=== PATIENT | male | born 1955 | race Caucasian/White ===

== ENCOUNTER 2017-05-20 23:38 | Emergency (ER) | payer MEDICARE, OTHER ==
--- NOTE | 2017-05-21 | ED Physician Documentation ---
PD HPI FOCAL NEURO - Stated complaint Stated Complaint: STROKE LIKE SYMPTOMS - History obtained from History obtained from: Patient, Family - History of Present Illness Timing - onset: Other (1 PM and again tonight) Timing - duration: Minutes Timing - details: Abrupt onset, Now resolved Severity of deficit: Mild Baseline status: positive: A&OX3, ambulatory, indep Similar symptoms before: Has not had sx before Recently seen: Not recently seen - Additional information Additional information: family noted slurred speech at approximately 1 PM today which resolved after few minutes. 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 Patient does not recall having speech difficulty; he also says that if he did have speech difficulty, it was likely a result of radiation treatments he had in the past for a brain tumor (notably, family indicates he has not had slurred speech before despite the radiation history) Review of Systems Constitutional: reports: Reviewed and negative Eyes: reports: Reviewed and negative Cardiac: reports: Reviewed and negative Respiratory: reports: Reviewed and negative GI: reports: Reviewed and negative Neurologic: reports: Difficulty speaking (resolved MEDICAL EQUIPMENT TECHNICIAN). denies: Generalized weakness, Focal weakness, Numbness, Confused, Altered mental status, Headache PD PAST MEDICAL HISTORY - Past Medical History Past Medical History: Yes Cardiovascular: Hypertension, High cholesterol Other Past Medical History: brain tumor, radiation tx. - Present Medications Home Medications: Ambulatory Orders Medication Instructions Recorded Confirmed Donepezil HCl [Donepezil HCl Odt] 10 mg PO DAILY 05/20/17 05/20/17 Lisinopril [Prinivil] 10 mg PO DAILY 05/20/17 05/20/17 Loratadine [Claritin] 10 mg PO DAILY 05/20/17 05/20/17 Simvastatin [Zocor] 40 mg PO DAILY 05/20/17 05/20/17 raNITIdine HCl [Ranitidine HCl] 75 mg PO DAILY 05/20/17 05/20/17 - Allergies Allergies/Adverse Reactions: Allergies Allergy/AdvReac Type Severity Reaction Status Date / Time No Known Drug Allergies Allergy Verified 05/20/17 23:57 - Living Situation Living Situation: reports: With family Living Arrangement: reports: At home - Social History Does the pt smoke?: No PD ED PE NORMAL - Vitals Vital signs reviewed: Yes - General General: Alert and oriented X 3, No acute distress, Well developed/nourished - HEENT HEENT: PERRL, EOMI, Moist mucous membranes - Neck Neck: Supple, no meningeal sign - Cardiac Cardiac: RRR, No murmur - Respiratory Respiratory: No respiratory distress, Clear bilaterally - Abdomen Abdomen: Soft, Non tender - Derm Derm: Normal color, Warm and dry - Extremities Extremities: Normal ROM s pain, No edema - Neuro Neuro: Alert and oriented X 3, bilingual interpreter 2-12 intact, No motor deficit, No sensory deficit, Normal speech Eye Opening: Spontaneous Motor: Obeys Commands Verbal: Oriented GCS Score: 15 - Psych Psych: Normal mood, Normal affect NIHSS - Level of Consciousness Level of consciousness: (0) Alert, Keenly responsive LOC Questions: (0) Answers both Q's correct LOC Commands: (0) Performs both correctly - Gaze Best Gaze: (0) Normal - Visual Visual: (0) No loss - Facial Palsy Facial Palsy: (0) Normal, symmetrical movement - Motor Arms (both separate) Motor Arm (right): (0) No drift Motor Arm (left): (0) No drift - Motor Legs (both separate) Motor Leg (right): (0) No drift Motor Leg (left): (0) No drift - Limb Ataxia Limb Ataxia: (0) Absent - Sensory Sensory: (0) Normal - Best Language Best Language: (0) No aphasia - Dysarthria Dysarthria: (0) Normal - Extinction and Inattention (formally neg Extinction and inattention: (0) No abnormality - Total Score/Results Total Score/Result: 0 Results - Vitals Vitals: Oxygen O2 Source Room air - Labs Labs: Laboratory Tests 05/20/17 05/20/17 05/20/17 23:53 23:53 23:53 WBC 8.1 RBC 4.58 L Hgb 14.2 Hct 41.1 L MCV 89.8 MCH 31.1 H MCHC 34.6 RDW 13.6 Plt Count 273 MPV 8.3 Neut # 4.9 Lymph # 2.2 Nye # 0.9 Eos # 0.1 Baso # 0.1 Absolute Nucleated RBC 0.01 Nucleated RBC % 0.1 Sodium 137 Potassium 4.0 Chloride 101 Carbon Dioxide 27 Anion Gap 9.0 BUN 15 Creatinine 1.0 Estimated GFR (MDRD) 76 L Glucose 128 H Calcium 9.3 Troponin I < 0.04 Urine Color Urine Clarity Urine pH Ur Specific [place] Urine Protein Urine Glucose (UA) Urine Ketones Urine Occult Blood Urine Nitrite Urine Bilirubin Urine Urobilinogen Ur Leukocyte Esterase Urine RBC Urine WBC Ur Squamous Epith Cells Urine Bacteria Urine Casts Urine Mucus Ur Microscopic Review Urine Culture Comments 05/21/17 01:10 WBC RBC Hgb Hct MCV MCH MCHC RDW Plt Count MPV Neut # Lymph # Nye # Eos # Baso # Absolute Nucleated RBC Nucleated RBC % Sodium Potassium Chloride Carbon Dioxide Anion Gap BUN Creatinine Estimated GFR (MDRD) Glucose Calcium Troponin I Urine Color YELLOW Urine Clarity CLEAR Urine pH 6.5 Ur Specific [place] 1.025 Urine Protein TRACE Urine Glucose (UA) NEGATIVE Urine Ketones NEGATIVE Urine Occult Blood LARGE H Urine Nitrite NEGATIVE Urine Bilirubin NEGATIVE Urine Urobilinogen 1 (NORMAL) Ur Leukocyte Esterase NEGATIVE Urine RBC 6-10 H Urine WBC 0-3 Ur Squamous Epith Cells RARE Squamous Urine Bacteria Rare Urine Casts 0-2 Hyaline Casts Urine Mucus Marked Strands Ur Microscopic Review INDICATED Urine Culture Comments NOT INDICATED - Rads (name of study) CT head Radiology: Prelim report reviewed, See rad report PD MEDICAL DECISION MAKING - ED course Complexity details: reviewed results, re-evaluated patient, considered differential, d/w patient, d/w family Departure - Departure Disposition: 01 Home, Self Care Clinical Impression: Slurred speech Condition: Good Instructions: Aphasia Comments: Contact your primary care provider's office in the morning to arrange for next available appointment Discharge Date/Time: 05/21/17 03:28
[2017-05-21 00:13] LABS: BASOPHILS # (AUTO) 0.1 10^3/uL (0.0-0.1); BASOPHILS % (AUTO) 0.7 %; EOSINOPHILS # (AUTO) 0.1 10^3/uL (0.0-0.7); EOSINOPHILS % (AUTO) 0.8 %; HGB - HEMOGLOBIN 14.2 g/dL (14.0-18.0); LYMPHOCYTES # (AUTO) 2.2 10^3/uL (1.5-3.5); LYMPHOCYTES % (AUTO) 27.5 %; MEAN CORPUSCULAR HEMOGLOBIN 31.1 pg (27.0-31.0); MEAN CORPUSCULAR HGB CONC 34.6 g/dL (32.0-36.0); MEAN CORPUSCULAR VOLUME 89.8 fL (80.0-94.0); MEAN PLATELET VOLUME 8.3 fL (7.4-11.4); MONOCYTES # (AUTO) 0.9 10^3/uL (0.0-1.0); MONOCYTES % (AUTO) 10.8 %; NEUTROPHILS # (AUTO) 4.9 10^3/uL (1.5-6.6); NEUTROPHILS % (AUTO) 60.2 %; PLT - PLATELET COUNT 273 10^3/uL (130-450); RED BLOOD COUNT 4.58 10^6/uL (4.70-6.10); RED CELL DISTRIBUTION WIDTH 13.6 % (12.0-15.0); WHITE BLOOD COUNT 8.1 x10^3/uL (4.8-10.8)
[2017-05-21 00:15] LABS: CALCIUM 9.3 mg/dL (8.5-10.3)
[2017-05-21] MEDS ORDERED: ONDANSETRON 4 MG/2 ML VIAL ONE (00:31)
[2017-05-21] MEDS ORDERED: ONDANSETRON 4 MG/2 ML VIAL IVP STA (00:44)
--- NOTE | 2017-05-21 00:58 | CT Report ---
EXAM: CT HEAD EXAM DATE: 05/21/2017 12:37 AM. CLINICAL HISTORY: Altered mental status. Slurred speech. COMPARISON: CT head without contrast 05/05/2009. TECHNIQUE: Multiaxial CT images were obtained from the foramen magnum to the vertex. Reformats: Coron al. IV contrast: None. In accordance with CT protocol optimization, one or more of the following dose reduction techniques w ere utilized for this exam: automated exposure control, adjustment of mA and/or KV based on patient s ize, or use of iterative reconstructive technique. FINDINGS: A remote right parieto-occipital craniotomy is again demonstrated. A large surgical resection cavity in the right parietal and occipital lobes appears to extend to the right atrial trigone. There is dys trophic calcification along the margins of the resection cavity inferiorly. These findings appear unc hanged. There is no intracranial hemorrhage. There is no obvious mass lesion or mass effect. There is no CT e vidence of an acute infarct. There is mild to moderate chronic microvascular change in the [place] er bilaterally. This appears stable. Ventricular size is stable. No evidence of hydrocephalus. IMPRESSION: 1. No acute intracranial abnormality. No significant change compared to 05/05/2009. 2. Stable postsurgical change from remote right parieto-occipital craniotomy. A surgical resection ca vity in the right parietal and occipital lobes with areas of dystrophic calcification appears unchang ed. 3. Stable ventricular size. No hydrocephalus. [facility] Referring Provider Line: [phone] SITE ID: [id number]
[2017-05-21 01:20] LABS: BILIRUBIN,URINE NEGATIVE (NEGATIVE); GLUCOSE, URINE (UA) NEGATIVE (NEGATIVE); KETONES,URINE (UA) NEGATIVE (NEGATIVE); LEUKOCYTE ESTERASE, URINE NEGATIVE (NEGATIVE); NITRITE,URINE NEGATIVE (NEGATIVE); OCCULT BLOOD,URINE LARGE (NEGATIVE); PH,URINE 6.5 PH (5.0-7.5); PROTEIN,URINE TRACE mg/dL (NEGATIVE); UROBILINOGEN,URINE 1 (NORMAL) E.U./dL (NORMAL)
[2017-05-21 01:21] LABS: CLARITY,URINE CLEAR (CLEAR)
[2017-05-21 01:28] LABS: BACTERIA,URINE Rare /HPF (None Seen); CASTS, URINE 0-2 Hyaline Casts /LPF; MUCUS,URINE Marked Strands; SQUAMOUS EPITHELIAL CELL,UR RARE Squamous (<= Few)
[2017-05-21] MEDS ORDERED: LISINOPRIL 5 MG TABLET PO STA (03:10)
[2017-05-21 03:26] VITALS: BP 156/98
== END 2017-05-21 03:28 | disposition home or self-care (01) ==
LOC: ED 23:38
DX: R47.81 Slurred speech (principal); I10 Essential (primary) hypertension; E78.00 Pure hypercholesterolemia, unspecified; R00.0 Tachycardia, unspecified; Z92.3 Personal history of irradiation
CPT/HCPCS: 36415; 70450; 80048; 81001; 84484; 85025; 96374; 99283; 99284; A9270; 81003; 87086; 93005

== ENCOUNTER 2017-10-08 12:38 | Outpatient (CLI) | payer OTHER | END 2017-10-08 12:39 | disposition short-term general hospital (02) | LOC: EMS 12:38 | PROVIDERS: ATTEND Surgery | DX: R53.1 Weakness (principal); R20.0 Anesthesia of skin; R47.81 Slurred speech ==

== ENCOUNTER 2019-02-18 12:17 | Outpatient (CLI) | payer OTHER | END 2019-02-18 12:18 | disposition critical access hospital (66) | LOC: EMS 12:17 | PROVIDERS: ATTEND Surgery | DX: R46.4 Slowness and poor responsiveness (principal); R11.2 Nausea with vomiting, unspecified; R19.7 Diarrhea, unspecified | CPT/HCPCS: A0425; A0427 ==

== ENCOUNTER 2019-02-18 12:36 | Inpatient (IN) | payer OTHER ==
[2019-02-18] MEDS ORDERED: SODIUM CHLORIDE 0.9% 1,000 ML IV ONE ×4 (13:11→14:58)
--- NOTE | 2019-02-18 13:11 | ED Physician Documentation ---
PD HPI ALTERED MENTAL STATUS - Stated complaint Stated Complaint: DECREASED LOC - Chief complaint Chief Complaint: Neuro - History obtained from History obtained from: Family, EMS - History of Present Illness Timing - onset: Today Timing - duration: Days (1) Timing - details: Gradual onset Quality / character: Confused, Disoriented Associated symptoms: Fever (101), Cough, NVD. No: Headache Contributing factors: Known dementia. No: Anticoagulated Basline status: Other (mostly bedbound at baseline, normally "pretty with it") Recently seen: Not recently seen Review of Systems Unable to obtain: AMS Constitutional: reports: Fever. denies: Chills GI: denies: Vomiting, Diarrhea Skin: denies: Rash Musculoskeletal: denies: Neck pain, Back pain Neurologic: denies: Headache PD PAST MEDICAL HISTORY - Past Medical History Cardiovascular: Hypertension, High cholesterol Neuro: Dementia, CVA GI: GERD Musculoskeletal: Other Other Past Medical History: Brain tumor. L hemiparesis - Past Surgical History Past Surgical History: Yes - Present Medications Home Medications: Ambulatory Orders Medication Instructions Recorded Confirmed Donepezil HCl 10 mg PO DAILY 02/18/19 02/18/19 Lisinopril [Zestril] 40 mg PO 02/18/19 Metoprolol Tartrate 25 mg PO BID 02/18/19 02/18/19 - Allergies Allergies/Adverse Reactions: Allergies Allergy/AdvReac Type Severity Reaction Status Date / Time No Known Drug Allergies Allergy Verified 02/18/19 12:54 - Social History Does the pt smoke?: No Smoking Status: Never smoker Does the pt drink ETOH?: No Does the pt have substance abuse?: No - Immunizations Immunizations are current?: Yes PD ED PE NORMAL - Vitals Vital signs reviewed: Yes - General General: No acute distress, Other (alert, slow to respond, confused) - HEENT HEENT: PERRL, Other (dry lips and mouth) - Neck Neck: Supple, no meningeal sign - Cardiac Cardiac: Strong equal pulses, Other (tachycardic) - Respiratory Respiratory: No respiratory distress, Other (rhonchi B) - Abdomen Abdomen: Soft, Non tender, Non distended - Derm Derm: Warm and dry, No rash - Extremities Extremities: No calf tenderness / cord - Neuro Neuro: Other (alert,) Eye Opening: Spontaneous Motor: Obeys Commands Verbal: Confused GCS Score: 14 - Psych Psych: Normal mood, Normal affect Results - Vitals Vitals: Vital Signs - 24 hr 02/18/19 02/18/19 02/18/19 12:37 13:30 15:30 Temperature 36.7 C Heart Rate 118 H 114 H 104 H Respiratory 16 20 17 Rate Blood Pressure 201/107 H 169/95 H 194/105 H O2 Saturation 94 94 94 02/18/19 16:46 Temperature Heart Rate 108 H Respiratory 26 H Rate Blood Pressure 197/102 H O2 Saturation 96 Oxygen O2 Source Room air - EKG (time done) 1250 Rate: Rate (enter#) (115) Rhythm: Sinus tachycardia [place]: LAD Intervals: Normal [place] QRS: Normal Ischemia: Normal ST segments - Labs Labs: Laboratory Tests 02/18/19 02/18/19 02/18/19 13:13 13:13 14:33 WBC 12.4 H RBC 4.99 Hgb 15.1 Hct 45.4 MCV 91.0 MCH 30.3 MCHC 33.3 RDW 13.1 Plt Count 315 MPV 10.2 Neut # (Auto) 10.2 H Lymph # (Auto) 1.5 [place] # (Auto) 0.6 Eos # (Auto) 0.0 Baso # (Auto) 0.1 Absolute Nucleated RBC 0.00 Nucleated RBC % 0.0 Sodium 139 Potassium 4.4 Chloride 101 Carbon Dioxide 22 Anion Gap 16.0 H BUN 15 Creatinine 0.9 Estimated GFR (MDRD) 85 L Glucose 188 H Lactic Acid 3.6 H* Calcium 9.7 Total Bilirubin 0.5 AST 67 H ALT 89 H Alkaline Phosphatase 53 Total Protein 8.5 H Albumin 4.7 Globulin 3.8 Albumin/Globulin Ratio 1.2 Lipase 38 Urine Color Urine Clarity Urine pH Ur Specific [place] Urine Protein Urine Glucose (UA) Urine Ketones Urine Occult Blood Urine Nitrite Urine Bilirubin Urine Urobilinogen Ur Leukocyte Esterase Urine RBC Urine WBC Ur Squamous Epith Cells Urine Bacteria Urine Mucus Ur Microscopic Review Urine Culture Comments Influenza A (Rapid) Influenza B (Rapid) 02/18/19 02/18/19 14:48 14:48 WBC RBC Hgb Hct MCV MCH MCHC RDW Plt Count MPV Neut # (Auto) Lymph # (Auto) [place] # (Auto) Eos # (Auto) Baso # (Auto) Absolute Nucleated RBC Nucleated RBC % Sodium Potassium Chloride Carbon Dioxide Anion Gap BUN Creatinine Estimated GFR (MDRD) Glucose Lactic Acid Calcium Total Bilirubin AST ALT Alkaline Phosphatase Total Protein Albumin Globulin Albumin/Globulin Ratio Lipase Urine Color YELLOW Urine Clarity CLEAR Urine pH 6.5 Ur Specific [place] 1.025 Urine Protein 30 H Urine Glucose (UA) 100 H Urine Ketones 15 H Urine Occult Blood TRACE-INTA Urine Nitrite NEGATIVE Urine Bilirubin NEGATIVE Urine Urobilinogen 0.2 (NORMAL) Ur Leukocyte Esterase NEGATIVE Urine RBC 0-5 Urine WBC 0-3 Ur Squamous Epith Cells NONE SEEN Urine Bacteria None Seen Urine Mucus Moderate Strands Ur Microscopic Review INDICATED Urine Culture Comments NOT INDICATED Influenza A (Rapid) Negative Influenza B (Rapid) Negative - Rads (name of study) CT abd/pelvis Radiology: Prelim report reviewed, EMP read contemporaneously, See rad report (1. Mild sigmoid colon diverticulosis without evidence of acute diverticulitis. 2. Hepatic steatosis. 3. No specific findings to account for fever or vomiting. ) cxr Radiology: Prelim report reviewed, EMP read contemporaneously, See rad report (Shallow lung volumes without focal consolidations identified. ) PD MEDICAL DECISION MAKING - ED course Complexity details: reviewed results, re-evaluated patient, considered differential, d/w patient, d/w family, d/w senior internet sales consultant ED course: Patient with altered mental status and fever. Also vomiting. Lactate is elevated. Unclear etiology. He has been coughing as well. Given IV fluids and IV antibiotics. Blood cultures were drawn. No acute findings on chest x-ray or CT of the abdomen pelvis. He states that he has no headache. Family denies any trauma. Atraumatic exam of the head. We will admit for further care. Discussed the case with Dr. Hunter, hospitalist who accepts This document was made in part using voice recognition software. While efforts are made to proofread this document, sound alike and grammatical errors may occur. Departure - Departure Disposition: 66 [facility] DC/Xfer Clinical Impression: Dehydration Fever Qualifiers: Fever type: unspecified Qualified Code(s): R50.9 - Fever, unspecified Altered mental status Qualifiers: Altered mental status type: disorientation Qualified Code(s): R41.0 - Disorientation, unspecified Vomiting Qualifiers: Vomiting type: unspecified Vomiting Intractability: intractable Nausea presence: with nausea Qualified Code(s): R11.2 - Nausea with vomiting, unspecified Condition: Stable Discharge Date/Time: 02/18/19 17:40
[2019-02-18 13:16] LABS: BASOPHILS # (AUTO) 0.1 10^3/uL (0.0-0.1); BASOPHILS % (AUTO) 0.4 %; HGB - HEMOGLOBIN 15.1 g/dL (14.0-18.0); LYMPHOCYTES # (AUTO) 1.5 10^3/uL (1.5-3.5); LYMPHOCYTES % (AUTO) 12.1 %; MEAN CORPUSCULAR HEMOGLOBIN 30.3 pg (27.0-31.0); MEAN CORPUSCULAR HGB CONC 33.3 g/dL (32.0-36.0); MEAN PLATELET VOLUME 10.2 fL (7.4-11.4); MONOCYTES # (AUTO) 0.6 10^3/uL (0.0-1.0); MONOCYTES % (AUTO) 5.1 %; NEUTROPHILS # (AUTO) 10.2 10^3/uL (1.5-6.6); NEUTROPHILS % (AUTO) 81.8 %; PLT - PLATELET COUNT 315 10^3/uL (130-450); RED BLOOD COUNT 4.99 10^6/uL (4.70-6.10); RED CELL DISTRIBUTION WIDTH 13.1 % (12.0-15.0); WHITE BLOOD COUNT 12.4 x10^3/uL (4.8-10.8)
[2019-02-18 13:31] LABS: ALBUMIN 4.7 g/dL (3.2-5.5); ALBUMIN/GLOBULIN RATIO 1.2 (1.0-2.2); BILIRUBIN,TOTAL 0.5 mg/dL (0.2-1.0); CALCIUM 9.7 mg/dL (8.5-10.3); CREATININE 0.9 mg/dL (0.6-1.2); TOTAL PROTEIN 8.5 g/dL (6.7-8.2)
[2019-02-18] MEDS ORDERED: ONDANSETRON 4 MG/2 ML VIAL IVP STA (14:19)
--- NOTE | 2019-02-18 14:30 | XRAY Report ---
Reason: fever, cough Procedure Date: 02/18/2019 Accession Number: [id number] / [id number] Procedure: XR - Chest 1 View X-Ray CPT Code: 37659 Final Report FULL RESULT: EXAM: CHEST RADIOGRAPHY EXAM DATE: 02/18/2019 02:21 PM. CLINICAL HISTORY: Fever, cough. COMPARISON: XR CHEST 1 VIEWS 05/05/2009 4:52 PM. TECHNIQUE: 1 view. FINDINGS: Lungs/Pleura: Shallow lung volumes without focal consolidations. No pulmonary edema detected. Mediastinum: Within exam limitations, the cardiomediastinal contour is normal. Other: None. IMPRESSION: Shallow lung volumes without focal consolidations identified. [facility]
[2019-02-18 14:55] LABS: BILIRUBIN,URINE NEGATIVE (NEGATIVE); GLUCOSE, URINE (UA) 100 mg/dL (NEGATIVE); KETONES,URINE (UA) 15 mg/dL (NEGATIVE); LEUKOCYTE ESTERASE, URINE NEGATIVE (NEGATIVE); NITRITE,URINE NEGATIVE (NEGATIVE); OCCULT BLOOD,URINE TRACE-INTA (NEGATIVE); PH,URINE 6.5 PH (5.0-7.5); PROTEIN,URINE 30 mg/dL (NEGATIVE); UROBILINOGEN,URINE 0.2 (NORMAL) E.U./dL (NORMAL)
[2019-02-18 14:58] LABS: CLARITY,URINE CLEAR (CLEAR)
[2019-02-18 15:15] LABS: BACTERIA,URINE None Seen /HPF (None Seen); MUCUS,URINE Moderate Strands; RBC,URINE 0-5 /HPF (0-5); SQUAMOUS EPITHELIAL CELL,UR NONE SEEN (<= Few)
[2019-02-18] MEDS ORDERED: IOVERSOL 320 100 ML VIAL IVP ONE ×2 (15:39→15:59)
[2019-02-18] MEDS ORDERED: PIPERACILLIN/TAZOBACTAM 3.375 GM in SODIUM CHLORIDE 0.9% MINIBAG 100 ML IV STA (16:17)
[2019-02-18] MEDS ORDERED: VANCOMYCIN INJ 2 GM in SODIUM CHLORIDE 0.9% 500 ML IV STA (16:17)
--- NOTE | 2019-02-18 16:17 | CT Report ---
Reason: vomiting, fever Procedure Date: 02/18/2019 Accession Number: [id number] / [id number] Procedure: CT - Abdomen/Pelvis W CPT Code: Final Report FULL RESULT: EXAM: CT ABDOMEN AND PELVIS EXAM DATE: 02/18/2019 03:56 PM. CLINICAL HISTORY: Vomiting, fever. COMPARISONS: None. TECHNIQUE: Routine helical CT imaging was performed through the abdomen and pelvis. IV contrast: OPTI 320 100ML. Enteric contrast: No. Reconstructions: Coronal and sagittal. In accordance with CT protocol optimization, one or more of the following dose reduction techniques were utilized for this exam: automated exposure control, adjustment of mA and/or KV based on patient size, or use of iterative reconstructive technique. FINDINGS: Lung Bases: Mild reticular dependent bibasilar atelectasis. Liver: Normal size and contour. Diffuse steatosis with areas of focal fatty sparing at the gallbladder fossa and peripherally in the lateral left lobe and superiorly at the junction of right and left lobes. Gallbladder/Bile Ducts: Unremarkable. Spleen: Normal. Pancreas: Normal. Adrenal Glands: Normal. Kidneys: Normal. No masses or hydronephrosis. Peritoneal Cavity/Bowel: Unopacified stomach and small bowel are nondistended. There is a 1 cm diverticulum medially directed from the second portion of the duodenum. The appendix is normal. There is minimal formed stool the colon. There is mild sigmoid colon diverticulosis. There is no focal pericolonic fat stranding. There is no lymphadenopathy, ascites, or pneumoperitoneum. Pelvic Organs: Bladder, prostate gland, and seminal vesicles are unremarkable. Vasculature: No aneurysms or other significant abnormality. Bones: No significant abnormality. Other: Body wall is unremarkable. IMPRESSION: 1. Mild sigmoid colon diverticulosis without evidence of acute diverticulitis. 2. Hepatic steatosis. 3. No specific findings to account for fever or vomiting. [facility]
[2019-02-18] MEDS ORDERED: ONDANSETRON 4 MG/2 ML VIAL IVP PRN (16:57)
[2019-02-18] MEDS ORDERED: ACETAMINOPHEN 325 MG TABLET PO PRN (16:57)
[2019-02-18] MEDS ORDERED: PROCHLORPERAZINE 10 MG/2 ML VIAL IVP PRN (16:57)
[2019-02-18] MEDS ORDERED: SODIUM CHLORIDE FLUSH 0.9% 10 ML SYRINGE IVP PRN (16:57)
--- NOTE | 2019-02-18 17:09 | HISTORY & PHYSICAL EXAMINATION ---
Chief Complaint - Chief Complaint Chief Complaint: N/V/D History of Present Illness - History of Present Illness HPI Comment/Other: Mr. Bravo is a 63-yrs-old male with a PMH significant for Hypertension, High cholesterol, Dementia, CVA with left hemiparesis, GERD, Brain tumor who was brought in by EMS complain for decreased LOC per family. Pt can not provide any medical information because of his medical hx. Pt had hx of brain tumor with tumor removal at 1976 and stroke at about 2 years ago with Left hemiparesis and with advanced dementia. Per pt's , pt has had diarrhea, dark urine, and has been less verbally responsive than his usual, today pt had at lease a dozen times of nausea and vomiting. Pt's report pt complained of abdominal pain but pt denies headache, chest pain, shortness of breath. pt had one time diarrhea at ER. Upon examination, pt's right side strength is 5/5 without focal deficits, but pt's left side as his hx with left hemiparesis. surprised, in pt's home meds, pt has no meds for his stroke. Pt's report he had fever at home. Pt is bedridden as his baseline, and he is living with family. pt's CXR and CT of abdomen reveals unremarkable. Route lab test reveal lactic acid at 3.6, and with elevated WBC at 12.4. pt is admitted for above medical reason. History - Past Medical History Cardiovascular: reports: Hypertension, High cholesterol Neuro: reports: Dementia, CVA GI: reports: GERD Musculoskeletal: reports: Other Other Past Medical History: Brain tumor. L hemiparesis - Family & Social History Family History: Mother: , CAD, Father: , CVA/TIA Family History Comment/Other: pt's pt's father from brain stroke, his mother from CAD and [place]. Social History Notes: pt is reported no hx of cigarette smoking, alcohol and drug issue. pt is living with family at [place]. pt is bedbound and his and his family support for pt. Meds/Allgy - Home Medications Home Medications: Ambulatory Orders Medication Instructions Recorded Confirmed Donepezil HCl 10 mg PO DAILY 02/18/19 02/18/19 Lisinopril [Zestril] 40 mg PO 02/18/19 Metoprolol Tartrate 25 mg PO BID 02/18/19 02/18/19 - Allergies Allergies/Adverse Reactions: Allergies Allergy/AdvReac Type Severity Reaction Status Date / Time No Known Drug Allergies Allergy Verified 02/18/19 12:54 Review of Systems - Constitutional Constitutional: reports: Fever. denies: Weakness, Poor appetite, Diaphoresis, Night sweats - Eyes Eyes: denies: Pain, Irritation, Field loss, Vision loss - Ears, Nose & Throat Ears, Nose & Throat: denies: Ear pain, Hearing loss, Vertigo, Nasal pain, Nosebleeds, Nasal congestion, Postnasal drainage - Cardiovascular Cariovascular: denies: Irregular heart rate, Palpitations, Chest pain, Edema, L ightheadedness, Syncope, Exertional dyspnea, Decr. exercise tolerance - Respiratory Respiratory: reports: Cough. denies: Sputum production, Wheezing, Snoring, H emoptysis, Orthopnea, SOB at rest, SOB with exertion - Gastrointestinal Gastrointestinal: reports: Abdominal pain, Diarrhea, Nausea, Vomiting. denies: Abdominal distention, Constipation, Change in bowel habits, Rectal bleeding, Black stools, Bloody stools, Coffee grounds emesis, Reflux/heartburn - Genitourinary Genitourinary: denies: Dysuria, Frequency, Urgency, Hematuria, Incontinence, Flank pain, Nocturia, Urethral discharge - Musculoskeletal Musculoskeletal: denies: Muscle pain, Back pain, Muscle aches, Stiffness, Limited range of motion, Muscle weakness, Gout, Joint pain - Integumentary Integumentary: denies: Rash, Lesions, Dryness, Lumps, Acne, Nail changes - Neurological Neurological: reports: Pre-existing deficit. denies: General weakness, Focal weakness, Headache, Dizziness, Numbness, Memory problems, Abnormal gait, Seizures, Incoordination, Slurred speech - Psychiatric Psychiatric: denies: Depression, Anxiety, Suicidal, Delusions, Hallucinations, Homicidal - Endocrine Endocrine: denies: Polyphagia - Hematologic/Lymphatic Hematologic/Lymphatic: denies: Anemia, Bruising, Petechiae, Blood clots, Lymphadenopathy, Bleeding tendencies - Other Findings Other Findings: all above ROS is provided by pt's Exam - Vital Signs Vital Signs: Vital Signs x48h Temp Pulse Resp BP Pulse Ox 02/18/19 16:46 108 H 26 H 197/102 H 96 02/18/19 12:37 36.7 C 118 H 16 201/107 H 94 - Physical Exam General Appearance: positive: No acute distress, Alert. negative: Lethargic Eyes Bilateral: positive: Normal inspection, PERRL, No lid inflammation ENT: positive: ENT inspection nml, Pharynx nml, No signs of dehydration. negative: Purulent nasal drainage Neck: positive: Nml inspection, Thyroid nml. negative: Thyromegaly, Lymphadenopathy (R), Lymphadenopathy (L), Stiff neck, Tracheal deviation Respiratory: positive: Chest non-tender, No respiratory distress, Breath sounds nml. negative: Wheezes, Rales, Rhonchi Cardiovascular: positive: Regular rate & rhythm, No murmur, No gallop, Tachycardia. negative: Irregularly irregular, Extrasystoles, Bradycardia, JVD present, Systolic murmur, Diastolic murmur Peripheral Pulses: positive: 2+ Abdomen: positive: Non-tender, No organomegaly, Nml bowel sounds, No distention. negative: Tenderness, Guarding, Rebound Back: positive: Nml inspection. negative: CVA tenderness (R), CVA tenderness (L) Skin: positive: Color nml, No rash, Warm, Dry. negative: Cyanosis, Diaphoresis, Pallor Extremities: positive: Non-tender, Nml appearance, Other (left hemiparesis). negative: Calf tenderness, Tracee's sign/cords Neurologic/Psychiatric: negative: Weakness, Sensory loss, Facial droop Sepsis Event Note (H) - Evaluation Current Stage of Sepsis: Sepsis Possible source of Sepsis: positive: Unknown - Sepsis Criteria Sepsis Criteria: Recorded Temperature greater than 38.3C or Less than 36C, Recorded Heart Rate greater than 90 bpm, Recorded Respiratory Rate greater than 20, WBC count greater than 10% bands, WBC count greater than 12,000 or less than 4000, Metabolic: lactate > 2 mmol/L Conclusion/Plan - Problem List (1) Altered mental status Conclusion/Plan: pt report pt had altered mental status. pt has hx of advanced dementia, brain tumor and stroke. CT of head is pending. on examination, pt is alert but does not verbally response my questions. but pt does not present acute focal neurological deficit. CT of head is pending, will followup neur check, continue nurse support and orientation to pt. Qualifiers: Altered mental status type: disorientation Qualified Code(s): R41.0 - Disorientation, unspecified (2) Sepsis Conclusion/Plan: pt report he had fever at home, tachycardia, elevated WBC, and elevated lactic acid 3.9. but CXR, and CT of abdomen is unremarkable, UA does not indicate infection. CT of head is pending. pt does not present typical meningitis symptoms, denies neck stiffness or headache. blood culture treat with Zosyn and Vancomycin IVF of NS lab and vital closely monitor pt (3) Intractable nausea and vomiting Conclusion/Plan: CT of abdomen reveal unremarkable. it is possible pt has virus gastritis. plan: IVF of NS, start with bowel rest with initial clear diet anti-emesis PRN, lab and vital monitor (4) HTN (hypertension) Conclusion/Plan: stable, resume home Metoprolol and Lisinopril. vital monitor (5) History of CVA (cerebrovascular accident) Conclusion/Plan: pt has no home meds for his hx of CVA. I tried to reach his PCP Dr. Jacqueline Patiño at [phone] but nobody picked up the phone. I do not know the reason why pt has no home meds for his stroke. advise pt's let pt closely f ollowup his PCP. (6) Advanced dementia Conclusion/Plan: pt has hx of advanced dementia, will resume Donepezil. (7) History of brain tumor Conclusion/Plan: stable, advise pt followup his PCP and oncologist. (8) Do not intubate, cardiopulmonary resuscitation (CPR)-only code status Conclusion/Plan: pt's request DNR/DNI for pt - Lab Results Fish Bones: 02/19/19 05:00 02/19/19 05:00 Core Measures - Anticipated LOS I expect patient to be DC'd or transferred within 96 hours.: Yes - DVT/VTE - Prophylaxis VTE/DVT Device ordered at admit?: Yes VTE/DVT Prophylaxis med ordered at admit?: Yes
[2019-02-18] MEDS ORDERED: hydrALAZINE INJ 20 MG/ML VIAL IVP PRN (17:47)
[2019-02-18] MEDS ORDERED: VANCOMYCIN PER PHARMACY 1 GM in SODIUM CHLORIDE 0.9% 250 ML IV SCH (18:00)
[2019-02-18] MEDS ORDERED: METOPROLOL TARTRATE 25 MG TABLET PO SCH (18:00)
[2019-02-18] MEDS: SODIUM CHLORIDE 0.9% 1,000 ML IV SCH (18:39)
[2019-02-18] MEDS: SODIUM CHLORIDE FLUSH 0.9% 10 ML SYRINGE IVP SCH (18:40)
[2019-02-18] MEDS: METOPROLOL TARTRATE 25 MG TABLET PO SCH ×2 (18:40→21:38)
--- NOTE | 2019-02-18 18:54 | PHARMACY PROGRESS NOTE ---
- Therapy Status Vancomycin regimen day #: 1 (Loading dose 2 g IV x1 given; Maintenance dose: 1.5 g IV q12 (per protocol)) Therapy status: Awaiting steady state Basis for treatment: Empirical Treatment indication: Sepsis Trough goal: 15-20 Concurrent antibiotics: zosyn - KENNY Risk Acute Kidney Injury risk factors: Piperacillin/Tozobactam, IV contrast within 72 hrs, Goal trough >15, Chronic baseline hypertension, Sepsis - Monitoring and Recommendation Clinical response to treatment: I&O Previous 24 hours 02/16/19 02/17/19 02/18/19 23:59 23:59 23:59 Intake Total 100 Balance 100 Lab Results 02/18/19 13:13 BUN 15 Creatinine 0.9 Estimated GFR (MDRD) 85 L Monitoring plan: Daily serum creatinine Next trough due prior to maintenance dose #: 3 (Suspecting this trough may be at pre-steady state as steady state generally reached ~ 5th dose) Next trough due (date/time): 02/20 at 0430 Areas for additional monitoring: IV to PO when appropriate, Therapy de- escalation based on culture results, Acute Kidney Injury Pharmacy recommendation: Continue current regime
[2019-02-18] MEDS: PIPERACILLIN/TAZOBACTAM 3.375 GM in SODIUM CHLORIDE 0.9% MINIBAG 100 ML IV SCH (21:46)
[2019-02-18] MEDS: FAMOTIDINE 20 MG TABLET PO SCH (21:47)
--- NOTE | 2019-02-18 22:51 | CT Report ---
Reason: AMS Procedure Date: 02/18/2019 Accession Number: [id number] / [id number] Procedure: CT - HEAD WO CPT Code: Final Report FULL RESULT: EXAM: CT HEAD EXAM DATE: 02/18/2019 10:28 PM. CLINICAL HISTORY: AMS. COMPARISON: HEAD W/O 05/21/2017 12:31 AM. TECHNIQUE: Multiaxial CT images were obtained from the foramen magnum to the vertex. Reformats: Sagittal and coronal. IV contrast: None. In accordance with CT protocol optimization, one or more of the following dose reduction techniques were utilized for this exam: automated exposure control, adjustment of mA and/or KV based on patient size, or use of iterative reconstructive technique. FINDINGS: Parenchyma: Stable encephalomalacia in the right occipital lobe. Stable atrophy and chronic ischemic changes. No intraparenchymal hemorrhage, mass-effect, or midline shift. Extraaxial Spaces: Normal for age. No subdural or epidural collections identified. Ventricles: Stable ventriculomegaly. Sinuses and Orbits: Imaged paranasal sinuses, orbits, and mastoids show no significant abnormality. Bones: Stable postoperative changes of right craniotomy. Other: None. IMPRESSION: Stable encephalomalacia in the right occipital lobe, with atrophy and ventriculomegaly. No evidence of acute hemorrhage or mass-effect. RADIA The call report notification system was initiated by Dr. Henri Lindquist at 10:41 PM on 02/18/2019. The above call report findings were discussed with Dr Moore by Dr. Henri Lindquist at 10:51 PM on 02/18/2019.
[2019-02-19] MEDS: SODIUM CHLORIDE FLUSH 0.9% 10 ML SYRINGE IVP SCH ×3 (01:21→17:35)
[2019-02-19] MEDS: PIPERACILLIN/TAZOBACTAM 3.375 GM in SODIUM CHLORIDE 0.9% MINIBAG 100 ML IV SCH ×4 (04:25→21:38)
[2019-02-19] MEDS ORDERED: VANCOMYCIN INJ 1.75 GM in SODIUM CHLORIDE 0.9% 500 ML IV SCH (05:00)
[2019-02-19] MEDS ORDERED: VANCOMYCIN INJ 1.5 GM in SODIUM CHLORIDE 0.9% 500 ML IV SCH (05:00)
[2019-02-19] MEDS: VANCOMYCIN INJ 1.5 GM in SODIUM CHLORIDE 0.9% 500 ML IV SCH ×2 (05:29→18:09)
[2019-02-19 05:38] LABS: BASOPHILS % (AUTO) 0.5 %; EOSINOPHILS # (AUTO) 0.1 10^3/uL (0.0-0.7); EOSINOPHILS % (AUTO) 0.7 %; HGB - HEMOGLOBIN 12.8 g/dL (14.0-18.0); LYMPHOCYTES # (AUTO) 2.6 10^3/uL (1.5-3.5); LYMPHOCYTES % (AUTO) 29.2 %; MEAN CORPUSCULAR HEMOGLOBIN 30.5 pg (27.0-31.0); MEAN CORPUSCULAR HGB CONC 33.3 g/dL (32.0-36.0); MEAN CORPUSCULAR VOLUME 91.4 fL (80.0-94.0); MEAN PLATELET VOLUME 10.4 fL (7.4-11.4); MONOCYTES # (AUTO) 0.7 10^3/uL (0.0-1.0); MONOCYTES % (AUTO) 8.3 %; NEUTROPHILS # (AUTO) 5.3 10^3/uL (1.5-6.6); NEUTROPHILS % (AUTO) 60.8 %; PLT - PLATELET COUNT 276 10^3/uL (130-450); RED CELL DISTRIBUTION WIDTH 13.3 % (12.0-15.0); WHITE BLOOD COUNT 8.8 x10^3/uL (4.8-10.8)
[2019-02-19 05:46] LABS: ALBUMIN 3.8 g/dL (3.2-5.5); ALBUMIN/GLOBULIN RATIO 1.3 (1.0-2.2); BILIRUBIN,TOTAL 0.4 mg/dL (0.2-1.0); CALCIUM 8.9 mg/dL (8.5-10.3); CREATININE 0.9 mg/dL (0.6-1.2); MAGNESIUM 1.8 mg/dL (1.7-2.8); TOTAL PROTEIN 6.8 g/dL (6.7-8.2)
[2019-02-19] MEDS: FAMOTIDINE 20 MG TABLET PO SCH ×2 (08:47→21:31)
[2019-02-19] MEDS: METOPROLOL TARTRATE 25 MG TABLET PO SCH ×2 (08:47→21:31)
[2019-02-19] MEDS: DONEPEZIL 5 MG TABLET PO SCH (08:47)
[2019-02-19] MEDS: SACCHAROMYCES BOULARDII 250 MG CAPSULE PO SCH ×2 (08:48→17:35)
[2019-02-19] MEDS ORDERED: ENOXAPARIN 40 MG/0.4 ML SYRINGE SUBQ SCH (09:00)
[2019-02-19] MEDS: SODIUM CHLORIDE 0.9% 1,000 ML IV SCH (09:14)
--- NOTE | 2019-02-19 12:16 | PROVIDER PROGRESS NOTE ---
Assessment/Plan - Problem List (1) Altered mental status Qualifiers: Altered mental status type: disorientation Qualified Code(s): R41.0 - Disorientation, unspecified Assessment/Plan: 02/19 great improved. pt talked with me and asked advance his diet. he denies any more N/V or diarrhea. CT of head is unremarkable for acute findings. neur check, continue nurse support and orientation to pt. pt report pt had altered mental status. pt has hx of advanced dementia, brain tumor and stroke. CT of head is pending. on examination, pt is alert but does not verbally response my questions. but pt does not present acute focal neurological deficit. CT of head is pending, will followup neur check, continue nurse support and orientation to pt. (2) Sepsis Conclusion/Plan: 02/19 improved. WBC is normal now. pt has no fever, chill, no tachycardia, and lactic acid is normal now blood culture is pending continue antibiotics, lab and vital monitor pt report he had fever at home, tachycardia, elevated WBC, and elevated lactic acid 3.9. but CXR, and CT of abdomen is unremarkable, UA does not indicate infection. CT of head is pending. pt does not present typical meningitis symptoms, denies neck stiffness or headache. blood culture treat with Zosyn and Vancomycin IVF of NS lab and vital closely monitor pt (3) Intractable nausea and vomiting Conclusion/Plan: resolved. CT of abdomen reveal unremarkable. it is possible pt has virus gastritis. plan: IVF of NS, start with bowel rest with initial clear diet anti-emesis PRN, lab and vital monitor (4) HTN (hypertension) Conclusion/Plan: stable, resume home Metoprolol and Lisinopril. vital monitor (5) History of CVA (cerebrovascular accident) Conclusion/Plan: pt has no home meds for his hx of CVA. I tried to reach his PCP Dr. Jacqueline wagner at [phone] but nobody picked up the phone. I do not know the reason why pt has no home meds for his stroke. advise pt's let pt closely followup his PCP. (6) Advanced dementia Conclusion/Plan: pt has hx of advanced dementia, will resume Donepezil. (7) History of brain tumor stable. - Current Meds Current Meds: Current Medications Generic Name Dose Route Start Last Admin Trade Name Freq PRN Reason Stop Dose Admin Donepezil HCl 10 mg 02/19/19 09:00 02/19/19 08:47 Aricept PO 10 mg DAILY YVES Administration Famotidine 20 mg 02/18/19 21:00 02/19/19 08:47 Pepcid PO 20 mg BID YVES Administration Sodium Chloride 1,000 mls @ 100 mls/hr 02/18/19 17:00 02/19/19 09:14 Normal Saline 0.9% IV 02/19/19 12:59 100 mls/hr .Q10H YVES Administration Piperacillin Sod/Tazobactam 100 mls @ 200 mls/hr 02/18/19 22:00 02/19/19 11:18 Sod 3.375 gm/ Sodium Chloride IV Infused Q6H YVES Infusion Vancomycin HCl 1.5 gm/ Sodium 500 mls @ 250 mls/hr 02/19/19 05:00 02/19/19 08:54 Chloride IV Infused Q12H YVES Infusion Metoprolol Tartrate 25 mg 02/18/19 18:00 02/19/19 08:47 Lopressor PO 25 mg BID YVES Administration Saccharomyces Boulardii 250 mg 02/19/19 08:00 02/19/19 08:48 Florastor PO 250 mg BIDWM YVES Administration Sodium Chloride 10 ml 02/18/19 17:00 02/19/19 01:21 Normal Saline Flush 0.9% IVP 10 ml 0100,0900,1700 YVES Administration - Lab Result Fish Bone Diagrams: 02/19/19 05:00 02/19/19 05:00 - Additional Planning My Orders: My Active Orders 02/18/19 16:57 Activity Orders [RC] Q2HR IO [RC] IOSHIFT IV Insert [RC] ONCE Initiate Bowel Care Protocol [RC] .protocol Initiate Line Care Protocol [RC] QSHIFT Initiate Personal Care Protoco [RC] .protocol Oxygen Therapy [RC] Routine Telemetry- [RC] Q4HR Vital Signs [RC] Q4HR Acetaminophen [Tylenol] 650 mg PO Q4HR PRN Ondansetron Inj [Zofran Inj] 4 mg IVP Q6HR PRN Prochlorperazine Inj [Compazine Inj] 10 mg IVP Q6HR PRN Sodium Chloride Flush 0.9% [Normal Saline Flush 0.9%] 10 ml IVP PRN PRN Code Status [OTHERS] Routine Condition of Patient [OTHERS] Routine DVT Prophylaxis [OTHERS] Routine 02/18/19 17:00 SCDs [RC] QSHIFT Sodium Chloride 0.9% [Normal Saline 0.9%] 1,000 ml IV 100 mls/hr Sodium Chloride Flush 0.9% [Normal Saline Flush 0.9%] 10 ml IVP 0100,0900,1700 02/18/19 17:15 Lisinopril [Zestril] DOSE UNIT RTE FREQ 02/18/19 17:47 hydrALAZINE INJ [Apresoline Inj] 10 mg IVP QID PRN 02/18/19 18:00 Metoprolol Tartrate [Lopressor] 25 mg PO BID 02/18/19 21:00 Famotidine [Pepcid] 20 mg PO BID 02/18/19 22:00 Piperacillin/Tazobactam [Zosyn] 3.375 gm Sodium Chloride 0.9% Minibag [Normal Saline 0.9% Minibag] 100 ml IV Q6H 02/19/19 05:00 Vancomycin Inj [Vancomycin] 1.5 gm Sodium Chloride 0.9% [Normal Saline 0.9%] 500 ml IV Q12H 02/19/19 08:00 Saccharomyces Boulardii [Florastor] 250 mg PO BIDWM 02/19/19 09:00 Donepezil [Aricept] 10 mg PO DAILY 02/19/19 10:29 Neuro Check [RC] QSHIFT 02/19/19 Lunch Soft (Low Fiber) Diet [DIET] 02/20/19 04:30 VANCOMYCIN TROUGH [CHEM] Timed 02/20/19 05:00 CBC - COMP BLD CT W/AUTO DIFF [HEME] DAILYLAB CMP [COMPREHENSIVE METABOLIC PANEL] [CHEM] DAILYLAB 02/21/19 05:00 CBC - COMP BLD CT W/AUTO DIFF [HEME] DAILYLAB CMP [COMPREHENSIVE METABOLIC PANEL] [CHEM] DAILYLAB 02/22/19 05:00 CBC - COMP BLD CT W/AUTO DIFF [HEME] DAILYLAB CMP [COMPREHENSIVE METABOLIC PANEL] [CHEM] DAILYLAB 02/23/19 05:00 CBC - COMP BLD CT W/AUTO DIFF [HEME] DAILYLAB CMP [COMPREHENSIVE METABOLIC PANEL] [CHEM] DAILYLAB Subjective - Subjective Patient Reports: Feeling Better Objective Vital Signs: Vital Signs - 24 hr 02/18/19 02/18/19 02/18/19 12:37 13:30 15:30 Temperature 36.7 C Heart Rate 118 H 114 H 104 H Heart Rate [ Brachial] Respiratory 16 20 17 Rate Blood Pressure 201/107 H 169/95 H 194/105 H Blood Pressure [Right Brachial artery] O2 Saturation 94 94 94 02/18/19 02/18/19 02/18/19 16:46 17:00 17:53 Temperature Heart Rate 108 H 110 H 115 H Heart Rate [ Brachial] Respiratory 26 H 26 H 19 Rate Blood Pressure 197/102 H 194/107 H 197/108 H Blood Pressure [Right Brachial artery] O2 Saturation 96 95 94 02/18/19 02/18/19 02/18/19 18:05 18:40 19:32 Temperature 37.4 C 37.1 C Heart Rate Heart Rate [ 99 97 Brachial] Respiratory 19 18 Rate Blood Pressure 166/88 H Blood Pressure 166/88 H 154/85 H [Right Brachial artery] O2 Saturation 95 94 02/19/19 02/19/19 02/19/19 01:00 03:50 08:30 Temperature 37.3 C 36.9 C 36.7 C Heart Rate Heart Rate [ 81 78 87 Brachial] Respiratory 18 18 18 Rate Blood Pressure Blood Pressure 145/89 H 145/76 H 141/89 H [Right Brachial artery] O2 Saturation 95 95 95 02/19/19 11:15 Temperature 36.8 C Heart Rate Heart Rate [ 75 Brachial] Respiratory 18 Rate Blood Pressure Blood Pressure 134/80 H [Right Brachial artery] O2 Saturation 94 Oxygen O2 Source Room air I&O (Last 24 Hrs): Intake and Output Totals x24h 02/17/19 02/18/19 02/19/19 23:59 23:59 23:59 Intake Total 2700 2180 Output Total 150 Balance 2700 2030 General: Alert, No acute distress HEENT: Atraumatic Neck: Supple Lymphatic: no adenopathy Neuro: Alert, Non Focal Cardiovascular: Regular rate, Normal S1, Normal S2 Respiratory: Chest non-tender, No respiratory distress, Breath sounds nml Abdomen: Normal bowel sounds, Soft Extremities: No edema, Normal pulses - Results Results: Laboratory Results WBC 8.8 x10^3/uL (4.8-10.8) 02/19/19 05:00 RBC 4.20 10^6/uL (4.70-6.10) L 02/19/19 05:00 Hgb 12.8 g/dL (14.0-18.0) L 02/19/19 05:00 Hct 38.4 % (42.0-52.0) L 02/19/19 05:00 MCV 91.4 fL (80.0-94.0) 02/19/19 05:00 MCH 30.5 pg (27.0-31.0) 02/19/19 05:00 MCHC 33.3 g/dL (32.0-36.0) 02/19/19 05:00 RDW 13.3 % (12.0-15.0) 02/19/19 05:00 Plt Count 276 10^3/uL (130-450) 02/19/19 05:00 MPV 10.4 fL (7.4-11.4) 02/19/19 05:00 Neut # (Auto) 5.3 10^3/uL (1.5-6.6) 02/19/19 05:00 Lymph # (Auto) 2.6 10^3/uL (1.5-3.5) 02/19/19 05:00 Slope # (Auto) 0.7 10^3/uL (0.0-1.0) 02/19/19 05:00 Eos # (Auto) 0.1 10^3/uL (0.0-0.7) 02/19/19 05:00 Baso # (Auto) 0.0 10^3/uL (0.0-0.1) 02/19/19 05:00 Absolute Nucleated RBC 0.00 x10^3/uL 02/19/19 05:00 Nucleated RBC % 0.0 /100WBC 02/19/19 05:00 Sodium 140 mmol/L (135-145) 02/19/19 05:00 Potassium 3.6 mmol/L (3.5-5.0) 02/19/19 05:00 Chloride 105 mmol/L (101-111) 02/19/19 05:00 Carbon Dioxide 24 mmol/L (21-32) 02/19/19 05:00 Anion Gap 11.0 (6-13) 02/19/19 05:00 BUN 9 mg/dL (6-20) 02/19/19 05:00 Creatinine 0.9 mg/dL (0.6-1.2) 02/19/19 05:00 Estimated GFR (MDRD) 85 (>89) L 02/19/19 05:00 Glucose 137 mg/dL (70-100) H 02/19/19 05:00 Lactic Acid 1.4 mmol/L (0.5-2.2) 02/19/19 08:25 Calcium 8.9 mg/dL (8.5-10.3) 02/19/19 05:00 Magnesium 1.8 mg/dL (1.7-2.8) 02/19/19 05:00 Total Bilirubin 0.4 mg/dL (0.2-1.0) 02/19/19 05:00 AST 43 IU/L (10-42) H 02/19/19 05:00 ALT 66 IU/L (10-60) H 02/19/19 05:00 Alkaline Phosphatase 41 IU/L (42-121) L 02/19/19 05:00 Total Protein 6.8 g/dL (6.7-8.2) 02/19/19 05:00 Albumin 3.8 g/dL (3.2-5.5) 02/19/19 05:00 Globulin 3.0 g/dL (2.1-4.2) 02/19/19 05:00 Albumin/Globulin Ratio 1.3 (1.0-2.2) 02/19/19 05:00 Lipase 38 U/L (22-51) 02/18/19 13:13 Urine Color YELLOW 02/18/19 14:48 Urine Clarity CLEAR (CLEAR) 02/18/19 14:48 Urine pH 6.5 PH (5.0-7.5) 02/18/19 14:48 Ur Specific Traer 1.025 (1.002-1.030) 02/18/19 14:48 Urine Protein 30 mg/dL (NEGATIVE) H 02/18/19 14:48 Urine Glucose (UA) 100 mg/dL (NEGATIVE) H 02/18/19 14:48 Urine Ketones 15 mg/dL (NEGATIVE) H 02/18/19 14:48 Urine Occult Blood TRACE-INTA (NEGATIVE) 02/18/19 14:48 Urine Nitrite NEGATIVE (NEGATIVE) 02/18/19 14:48 Urine Bilirubin NEGATIVE (NEGATIVE) 02/18/19 14:48 Urine Urobilinogen 0.2 (NORMAL) E.U./dL (NORMAL) 02/18/19 14:48 Ur Leukocyte Esterase NEGATIVE (NEGATIVE) 02/18/19 14:48 Urine RBC 0-5 /HPF (0-5) 02/18/19 14:48 Urine WBC 0-3 /HPF (0-3) 02/18/19 14:48 Ur Squamous Epith Cells NONE SEEN (<= Few) 02/18/19 14:48 Urine Bacteria None Seen /HPF (None Seen) 02/18/19 14:48 Urine Mucus Moderate Strands 02/18/19 14:48 Ur Microscopic Review INDICATED 02/18/19 14:48 Urine Culture Comments NOT INDICATED 02/18/19 14:48 Influenza A (Rapid) Negative (Negative) 02/18/19 14:48 Influenza B (Rapid) Negative (Negative) 02/18/19 14:48 Sepsis Event Note (H) - Evaluation Current Stage of Sepsis: Sepsis Possible source of Sepsis: positive: Unknown - Sepsis Criteria Sepsis Criteria: Recorded Temperature greater than 38.3C or Less than 36C, Recorded Heart Rate greater than 90 bpm, Recorded Respiratory Rate greater than 20, WBC count greater than 10% bands, WBC count greater than 12,000 or less than 4000, Metabolic: lactate > 2 mmol/L ABX Reporting Has patient been on IV antibiotics over the past 48 hours?: Yes Current Medications - Current Medications Current Medications: Active Medications Acetaminophen (Tylenol) 650 mg PO Q4HR PRN PRN Reason: Pain 1 to 4 Donepezil HCl (Aricept) 10 mg PO DAILY [facility] Last Admin: 02/19/19 08:47 Dose: 10 mg Famotidine (Pepcid) 20 mg PO BID [facility] Last Admin: 02/19/19 08:47 Dose: 20 mg Hydralazine HCl (Apresoline Inj) 10 mg IVP QID PRN PRN Reason: Hypertensive Emergency Sodium Chloride (Normal Saline 0.9%) 1,000 mls @ 100 mls/hr IV .Q10H [facility] Stop: 02/19/19 12:59 Last Admin: 02/19/19 09:14 Dose: 100 mls/hr Piperacillin Sod/Tazobactam (Sod 3.375 gm/ Sodium Chloride) 100 mls @ 200 mls/hr IV Q6H [facility] Last Infusion: 02/19/19 11:18 Dose: Infused Vancomycin HCl 1.5 gm/ Sodium (Chloride) 500 mls @ 250 mls/hr IV Q12H [facility] Last Infusion: 02/19/19 08:54 Dose: Infused Metoprolol Tartrate (Lopressor) 25 mg PO BID [facility] Last Admin: 02/19/19 08:47 Dose: 25 mg Ondansetron HCl (Zofran Inj) 4 mg IVP Q6HR PRN PRN Reason: Nausea / Vomiting Prochlorperazine Edisylate (Compazine Inj) 10 mg IVP Q6HR PRN PRN Reason: Nausea / Vomiting Saccharomyces Boulardii (Florastor) 250 mg PO BIDWM [facility] Last Admin: 02/19/19 08:48 Dose: 250 mg Sodium Chloride (Normal Saline Flush 0.9%) 10 ml IVP PRN PRN PRN Reason: NEEDED PER PROVIDER ORDERS Sodium Chloride (Normal Saline Flush 0.9%) 10 ml IVP 0100,0900,1700 [facility] Last Admin: 02/19/19 01:21 Dose: 10 ml Donepezil HCl 10 mg PO DAILY 02/18/19 Lisinopril [Zestril] 40 mg PO 02/18/19 Metoprolol Tartrate 25 mg PO BID 02/18/19
--- NOTE | 2019-02-19 14:09 | PHARMACY PROGRESS NOTE ---
- Best Possible Medication History Admit Date and Time: 02/18/19 1651 Processed by: Pharmacy Medication History completed: Yes Patient Interview: Pt unable to participate Secondary Source(s): Physician records, Pharmacy records, Insurance records As the person ultimately responsible for medication therapy, providers are able to order a medication from an existing home medication list in [facility] via the "Reconcile Routine" prior to Confirmation of that medication by office support assistant. Such practice is discouraged except when the physician, in their clinical judgment, deems that a medical need exists for a medication without regard to previous use.
[2019-02-20] MEDS: SODIUM CHLORIDE FLUSH 0.9% 10 ML SYRINGE IVP SCH (01:31)
[2019-02-20] MEDS: PIPERACILLIN/TAZOBACTAM 3.375 GM in SODIUM CHLORIDE 0.9% MINIBAG 100 ML IV SCH ×2 (04:00→09:23)
[2019-02-20 05:08] LABS: BASOPHILS # (AUTO) 0.1 10^3/uL (0.0-0.1); BASOPHILS % (AUTO) 0.8 %; EOSINOPHILS # (AUTO) 0.2 10^3/uL (0.0-0.7); EOSINOPHILS % (AUTO) 2.8 %; HGB - HEMOGLOBIN 12.5 g/dL (14.0-18.0); LYMPHOCYTES # (AUTO) 2.7 10^3/uL (1.5-3.5); LYMPHOCYTES % (AUTO) 35.9 %; MEAN CORPUSCULAR HEMOGLOBIN 31.3 pg (27.0-31.0); MEAN CORPUSCULAR HGB CONC 33.5 g/dL (32.0-36.0); MEAN CORPUSCULAR VOLUME 93.3 fL (80.0-94.0); MEAN PLATELET VOLUME 10.5 fL (7.4-11.4); MONOCYTES # (AUTO) 0.7 10^3/uL (0.0-1.0); MONOCYTES % (AUTO) 8.7 %; NEUTROPHILS # (AUTO) 3.9 10^3/uL (1.5-6.6); NEUTROPHILS % (AUTO) 51.3 %; PLT - PLATELET COUNT 270 10^3/uL (130-450); RED CELL DISTRIBUTION WIDTH 13.3 % (12.0-15.0); WHITE BLOOD COUNT 7.6 x10^3/uL (4.8-10.8)
[2019-02-20 05:16] LABS: VANCOMYCIN,TROUGH 19.5 ug/mL (10.0-20.0)
[2019-02-20 05:19] LABS: ALBUMIN 3.5 g/dL (3.2-5.5); ALBUMIN/GLOBULIN RATIO 1.2 (1.0-2.2); BILIRUBIN,TOTAL 0.5 mg/dL (0.2-1.0); CALCIUM 8.7 mg/dL (8.5-10.3); TOTAL PROTEIN 6.5 g/dL (6.7-8.2)
[2019-02-20] MEDS: VANCOMYCIN INJ 1.5 GM in SODIUM CHLORIDE 0.9% 500 ML IV SCH (05:49)
--- NOTE | 2019-02-20 08:54 | PHARMACY PROGRESS NOTE ---
- Therapy Status Vancomycin regimen day #: 3 Therapy status: Trough therapeutic Basis for treatment: Empirical Trough goal: 15-20 - KENNY Risk Risk level for Acute Kidney Injury: Moderate Acute Kidney Injury risk factors: Piperacillin/Tozobactam, Goal trough >15, Chronic baseline hypertension, Sepsis - Monitoring and Recommendation Clinical response to treatment: I&O Previous 24 hours 02/18/19 02/19/19 02/20/19 23:59 23:59 23:59 Intake Total 2700 4366.667 713.333 Output Total 150 Balance 2700 4216.667 713.333 Lab Results 02/20/19 02/19/19 02/18/19 04:25 05:00 13:13 BUN 12 9 15 Creatinine 1.0 0.9 0.9 Estimated GFR (MDRD) 75 L 85 L 85 L Vancomycin Monitoring 02/20/19 04:25 Vancomycin Trough 19.5 Cultures 02/18/19 16:35 Blood - Right Arm Blood Culture - Preliminary NO GROWTH AFTER 1 DAY 02/18/19 14:33 Blood Blood Culture - Preliminary NO GROWTH AFTER 1 DAY Monitoring plan: Daily serum creatinine Next trough due (date/time): No further levels; Will monitor changes in serum creatinine Areas for additional monitoring: IV to PO when appropriate, Therapy de- escalation based on culture results, Acute Kidney Injury Pharmacy recommendation: Continue current regime
[2019-02-20] MEDS ORDERED: LACTOBACILLUS RHAMNOSUS GG CAPSULE PO SCH (09:00)
[2019-02-20] MEDS ORDERED: lisinopriL 20 MG TABLET PO SCH (09:00)
[2019-02-20] MEDS: SACCHAROMYCES BOULARDII 250 MG CAPSULE PO SCH (09:15)
[2019-02-20] MEDS: FAMOTIDINE 20 MG TABLET PO SCH (09:15)
[2019-02-20] MEDS: DONEPEZIL 5 MG TABLET PO SCH (09:16)
[2019-02-20] MEDS: METOPROLOL TARTRATE 25 MG TABLET PO SCH (09:16)
[2019-02-20 09:18] VITALS: BP 154/87
[2019-02-20] MEDS ORDERED: SODIUM CHLORIDE 0.9% 1,000 ML IV SCH (10:00)
--- NOTE | 2019-02-20 10:21 | Discharge Plan ---
Discharge Plan Problem Reviewed?: Yes Disposition: Home, Self Care Condition: Stable Prescriptions: cefUROXime axetiL [Ceftin] 500 mg PO Q12H #10 tablet Lactobacillus Rhamnosus GG [Culturelle] 1 cap PO DAILY #5 capsule Diet: Regular Activity Restrictions: Activity as Tolerated Shower Restrictions: No (fall precaution) Instruction Topics: Cefuroxime tablets Health Concerns: nausea, vomiting, diarrhea and fever Plan of Treatment: your nausea, vomiting, diarrhea, and fever all resolved now. you tolerate the regular diet. antibiotics Ceftin is prescribed for you to finish the treatment course. keep you hydration and resume your home medications as your schedule. Care Goals: stabilization and improvement of your medical conditions. Assessment: your vital and lab test are stable now. you tolerate the regular diet. Additional Instructions or Follow Up instructions: you may followup your PCP in one to two weeks. Should your symptoms return or worsen, you may present ER or call 911 for help. No Smoking: If you smoke, Please STOP! Call for help. Follow-up with: GONZALEZ WINTER MD [Primary Care Provider] -
--- NOTE | 2019-02-20 10:38 | DISCHARGE SUMMARY ---
Discharge Summary Admit Date: 02/18/19 Discharge Date: 02/20/19 Discharging Provider: Diony Leonard Primary Care Provider: Jacqueline Garrison Condition at Discharge: Stable Discharge Disposition: Home, Self Care Discharge Facility Name: home - DIAGNOSES Admission Diagnoses: (1) Altered mental status (2) Sepsis (3) Intractable nausea and vomiting (4) HTN (hypertension) (5) History of CVA (cerebrovascular accident) (6) Advanced dementia (7) History of brain tumor Discharge Diagnoses with Status of Each Condition: (1) Altered mental status resolved, as pt's baseline. CT of head was unremarkable (2) Sepsis resolved. pt was found at the admission to have elevated WBC, elevated lactic acid, fever at home, with nausea, vomiting and diarrhea. pt was treated with antibiotic and IVF. then pt's WBC and lactic acid became normal. pt has no more nausea, vomiting or diarrhea, and pt tolerate regular diet. p tis prescribed antibiotics to home (3) Intractable nausea and vomiting resolved (4) HTN (hypertension) stable (5) History of CVA (cerebrovascular accident) stable, resume home meds (6) Advanced dementia stable (7) History of brain tumor stable - HPI History of Present Illness: Mr. Bravo is a 63-yrs-old male with a PMH significant for Hypertension, High cholesterol, Dementia, CVA with left hemiparesis, GERD, Brain tumor who was brought in by EMS complain for decreased LOC per family. Pt can not provide any medical information because of his medical hx. Pt had hx of brain tumor with tumor removal at 1976 and stroke at about 2 years ago with Left hemiparesis and with advanced dementia. Per pt's , pt has had diarrhea, dark urine, and has been less verbally responsive than his usual, today pt had at lease a dozen times of nausea and vomiting. Pt's report pt complained of abdominal pain but pt denies headache, chest pain, shortness of breath. pt had one time diarrhea at ER. Upon examination, pt's right side strength is 5/5 without focal deficits, but pt's left side as his hx with left hemiparesis. surprised, in pt's home meds, pt has no meds for his stroke. Pt's report he had fever at home. Pt is bedridden as his baseline, and he is living with family. pt's CXR and CT of abdomen reveals unremarkable. Route lab test reveal lactic acid at 3.6, and with elevated WBC at 12.4. pt is admitted for above medical reason. - HOSPITAL COURSE Hospital Course: pt was admitted for altered mental status. pt's head CT was unremarkable. pt was found to have elevated WBC, elevated lactic acid, fever at home, with nausea, vomiting and diarrhea. pt has sepsis at the admission. pt was treated with antibiotics, IVF and bowel rest at first. after treatment, pt's WBC and lactic acid became normal. pt has no more nausea, vomiting or diarrhea, and pt tolerate regular diet. p tis prescribed antibiotics to home. the detail hospital course is as the below. (1) Altered mental status resolved, as pt's baseline. CT of head was unremarkable (2) Sepsis resolved. pt was found at the admission to have elevated WBC, elevated lactic acid, fever at home, with nausea, vomiting and diarrhea. pt was treated with antibiotic and IVF. then pt's WBC and lactic acid became normal. pt has no more nausea, vomiting or diarrhea, and pt tolerate regular diet. p tis prescribed antibiotics to home (3) Intractable nausea and vomiting resolved (4) HTN (hypertension) stable (5) History of CVA (cerebrovascular accident) stable, resume home meds (6) Advanced dementia stable (7) History of brain tumor stable - ALLERGIES Allergies/Adverse Reactions: Allergies Allergy/AdvReac Type Severity Reaction Status Date / Time No Known Drug Allergies Allergy Verified 02/18/19 12:54 - MEDICATIONS Home Medications: Ambulatory Orders Medication Instructions Recorded Confirmed Donepezil HCl 10 mg PO DAILY 02/18/19 02/18/19 Lisinopril [Zestril] 40 mg PO DAILY 02/18/19 02/19/19 Metoprolol Tartrate 25 mg PO BID 02/18/19 02/18/19 Aspirin [Aspirin EC] 81 mg PO DAILY 02/19/19 02/19/19 Lactobacillus Rhamnosus GG 1 cap PO DAILY #5 capsule 02/20/19 [Culturelle] cefUROXime axetiL [Ceftin] 500 mg PO Q12H #10 tablet 02/20/19 - PHYSICAL EXAM AT DISCHARGE General Appearance: positive: No acute distress, Alert. negative: Lethargic Eyes Bilateral: positive: Normal inspection, PERRL, No lid inflammation ENT: positive: ENT inspection nml, Pharynx nml, No signs of dehydration. negative: Purulent nasal drainage Neck: positive: Nml inspection, Thyroid nml, No JVD, Trachea midline. negative: Thyromegaly, Lymphadenopathy (R), Lymphadenopathy (L), Stiff neck, Tracheal deviation Respiratory: positive: Chest non-tender, No respiratory distress, Breath sounds nml. negative: Wheezes, Rales, Rhonchi Cardiovascular: positive: Regular rate & rhythm, No murmur, No gallop. negative: Irregularly irregular, Extrasystoles, Tachycardia, Bradycardia, JVD present, Systolic murmur, Diastolic murmur Peripheral Pulses: positive: 2+ Abdomen: positive: Non-tender, No organomegaly, Nml bowel sounds, No distention. negative: Tenderness, Guarding, Rebound Back: positive: Nml inspection. negative: CVA tenderness (R), CVA tenderness (L) Skin: positive: Color nml, No rash, Warm, Dry. negative: Cyanosis, Diaphoresis, Pallor Extremities: positive: Non-tender, Nml appearance. negative: Calf tenderness, Tracee's sign/cords Neurologic/Psychiatric: negative: Weakness, Sensory loss, Facial droop, Slurred/abnml speech - LABS Result Diagrams: 02/20/19 04:25 02/20/19 04:25 - SEPSIS Current Stage of Sepsis: Sepsis Possible source of Sepsis: Unknown Sepsis Criteria: Recorded Temperature greater than 38.3C or Less than 36C, Recorded Heart Rate greater than 90 bpm, Recorded Respiratory Rate greater than 20, WBC count greater than 10% bands, WBC count greater than 12,000 or less than 4000, Metabolic: lactate > 2 mmol/L - FOLLOW UP Follow Up: your nausea, vomiting, diarrhea, and fever all resolved now. you tolerate the regular diet. antibiotics Ceftin is prescribed for you to finish the treatment course.advise you keep you hydration and resume your home medications as your schedule. you may followup your PCP in one to two weeks. Should your symptoms return or worsen, you may present ER or call 911 for help. - TIME SPENT Time Spent in Discharge (Minutes): 40
== END 2019-02-20 12:15 | disposition home or self-care (01) | DRG 872 ==
LOC: EDUNIT# → ED 12:36 → MS2 16:57
PROVIDERS: ADMIT Nurse Practitioner Gerontology; ATTEND Nurse Practitioner Gerontology
DX: A41.9 Sepsis, unspecified organism (principal); I69.354 Hemiplegia and hemiparesis following cerebral infarction affecting left non-dominant side; E86.0 Dehydration; R11.2 Nausea with vomiting, unspecified; R19.7 Diarrhea, unspecified; R50.9 Fever, unspecified; I69.319 Unspecified symptoms and signs involving cognitive functions following cerebral infarction; F01.50 Vascular dementia, unspecified severity, without behavioral disturbance, psychotic disturbance, mood disturbance, and anxiety; I10 Essential (primary) hypertension; E78.00 Pure hypercholesterolemia, unspecified; K57.30 Diverticulosis of large intestine without perforation or abscess without bleeding; Z66 Do not resuscitate; Z79.899 Other long term (current) drug therapy; Z74.01 Bed confinement status; Z87.898 Personal history of other specified conditions; Z79.82 Long term (current) use of aspirin; Z87.19 Personal history of other diseases of the digestive system
CPT/HCPCS: 36415; 51701; 70450; 71045; 74177; 80053; 80202; 81001; 83605; 83690; 83735; 85025; 87040; 87275; 87276; 96361; 96365; 96375; 99285; A9270; J3370; Q9967; 81003; 87086

== ENCOUNTER 2022-02-14 22:02 | Outpatient (CLI) | payer OTHER | END 2022-02-14 22:03 | disposition EMS.NT | LOC: EMS 22:02 | DX: R53.83 Other fatigue (principal); Z66 Do not resuscitate ==